=== PATIENT | male | born 1955 | race Caucasian/White ===

== ENCOUNTER 2019-10-02 11:22 | Emergency (ER) | payer OTHER ==
[~2019-10-02] VITALS: Ht 162.6 cm; Wt 77.3 kg
[2019-10-02] MEDS ORDERED: IBUP-2271 PO (11:25)
[2019-10-02] MEDS ORDERED: LIDOCAINE 1%/EPI 1:200,000/PF 10 ML VIAL INJ ONE (12:30)
[2019-10-02] MEDS ORDERED: LIDOCAINE 1% 10 ML VIAL INJ ONE (13:00)
[2019-10-02] MEDS ORDERED: HYDROCODONE/ACETAMINOPHEN 5-325 MG TABLET PO ONE (13:00)
[2019-10-02] MEDS ORDERED: CEPHALEXIN MONOHYDRATE 500 MG CAPSULE PO ONE (13:30)
[2019-10-02 16:01] VITALS: BP 138/70
== END 2019-10-02 16:03 | disposition home or self-care (01) ==
LOC: EMS 11:25 → EDBD 11:25 → EMS 16:03
DX: S62.630B Displaced fracture of distal phalanx of right index finger, initial encounter for open fracture (principal); W27.1XXA Contact with garden tool, initial encounter; Y93.H2 Activity, gardening and landscaping; Y92.89 Other specified places as the place of occurrence of the external cause; Y99.8 Other external cause status
CPT/HCPCS: 29130; 73130; 99284; J3490 ×2; 12002

== ENCOUNTER 2019-10-04 15:56 | Emergency (ER) | payer OTHER ==
[~2019-10-04] VITALS: Ht 162.6 cm; Wt 77.3 kg
[~2019-10-04 15:56] MED LIST: IBUP-2271 PO
[2019-10-04] MEDS ORDERED: HYDR-3290 PO (16:11)
[2019-10-04] MEDS ORDERED: CEPH500 PO (16:11)
[2019-10-04] MEDS ORDERED: BACITRACIN 0.9 GM PACKET OINTMENT TP ONE (17:45)
[2019-10-04 18:20] VITALS: BP 131/75
== END 2019-10-04 18:44 | disposition home or self-care (01) ==
LOC: EMS 15:57
DX: S61.210A Laceration without foreign body of right index finger without damage to nail, initial encounter (principal); R03.0 Elevated blood-pressure reading, without diagnosis of hypertension; Z79.899 Other long term (current) drug therapy; W29.3XXA Contact with powered garden and outdoor hand tools and machinery, initial encounter; Y93.89 Activity, other specified; Y92.89 Other specified places as the place of occurrence of the external cause; Y99.8 Other external cause status

== ENCOUNTER 2020-05-03 14:27 | Emergency (ER) | payer OTHER ==
[~2020-05-03] VITALS: Ht 160 cm; Wt 72.7 kg
[~2020-05-03 14:27] MED LIST changes: +CEPH500 PO; +HYDR-3290 PO
[2020-05-03] MEDS ORDERED: CEPHALEXIN MONOHYDRATE 500 MG CAPSULE PO ONE (15:15)
[2020-05-03] MEDS ORDERED: ACETAMINOPHEN 325 MG TABLET PO ONE (15:15)
[2020-05-03 17:40] VITALS: BP 142/81
== END 2020-05-03 17:41 | disposition home or self-care (01) ==
LOC: EMS 14:28
DX: S62.630B Displaced fracture of distal phalanx of right index finger, initial encounter for open fracture (principal); W26.8XXA Contact with other sharp object(s), not elsewhere classified, initial encounter; Y93.89 Activity, other specified; Y92.89 Other specified places as the place of occurrence of the external cause; Y99.8 Other external cause status